=== PATIENT | female | born 1995 | race Hispanic/Latino ===

== ENCOUNTER 2018-08-03 15:25 | Emergency (ER) | payer MEDICAID | END 2018-08-03 16:16 | disposition home or self-care (01) | LOC: EDH 15:25 | DX: O26.891 Other specified pregnancy related conditions, first trimester (principal); H66.001 Acute suppurative otitis media without spontaneous rupture of ear drum, right ear; Z3A.01 Less than 8 weeks gestation of pregnancy ==

== ENCOUNTER 2024-11-05 09:47 | Emergency (ER) | payer MEDICAID ==
[~2024-11-05] VITALS: Ht 154.9 cm; Wt 108.9 kg
[2024-11-05 09:48] VITALS: BP 133/79; PULSE 75; RESP 16; TEMP 98
[2024-11-05] MEDS ORDERED: AMOX500C2 PO (09:52)
[2024-11-05] MEDS ORDERED: CORTSOL OTIC (09:52)
--- NOTE | 2024-11-05 09:53 | ERN ---
General Chief Complaint: Earache Stated Complaint: LEFT EAR PAIN Time Seen by MD: 09:48 Source: patient History of Present Illness Initial Comments Patient is a 29-year-old female coming in to be evaluated for left ear pain. Patient states that the ear pain began two days ago. She was states the pain just began with a sudden mild nasal congestion no fever no chills. ROS Dictation CONSTITUTIONAL: No chills, no fever, no weakness, no diaphoresis, no malaise. HEAD/FACE: No signs of trauma. EENT: No eye pain, no blurred vision, no tearing, no double vision, ear pain, no ear discharge, no nose pain, no nasal congestion, no throat pain, no throat swelling, no mouth pain. RESPIRATORY: No cough, no orthopnea, no SOB, no stridor, no wheezing. CARDIOVASCULAR: No chest pain, no edema, no palpitations, no syncope. GASTROINTESTINAL/ABDOMINAL: No abdominal pain, no constipation, no diarrhea, no nausea, no vomiting. GENITOURINARY: No abnormal discharge, no dysuria, no frequent urination, no hematuria. No complaints of pain in the genitals. MUSCULOSKELETAL: No back pain, no gout, no joint pain, no joint swelling, no muscle pain, no muscle stiffness, no neck pain. INTEGUMENTARY: No change in color, no change in hair/nails, no dryness, no lesion, no lumps, no rash. NEUROLOGICAL/PSYCH: No anxiety, not depressed, no emotional problem, no headache, no numbness, no pre-existing deficit, no history of seizures, no tremors, no weakness. HEMATOLOGIC/LYMPHATIC: Not anemic, no history of blood clots, no apparent bleeding, no bruising, glands not swollen. All Systems Negative, Except as Noted. Physical Exam Physical Exam Dictation VITAL SIGNS: Reviewed. GENERAL APPEARANCE: Alert, oriented x3, no acute distress, obese. HEAD AND FACE: Non-traumatic. EYES: PERRL, pink conjunctivas, eyelid no trauma, anterior chamber clear. EARS: Pinnas intact and no signs of trauma or erythema. Ear canals clear and no discharge. TMs erythema. NOSE: No discharge, no bleeding. OROPHARYNX: Mouth normal, teeth no caries, tongue pink. Pharynx clear, no erythema. Tonsils no exudates, no abscesses noted. Mucous membrane moist. NECK: Supple, non-tender, no thyromegaly, no masses, no JVD, no bruits. BREAST: Deferred. CHEST: No tenderness, no crepitus, no paradoxical movement, no retractions. LUNGS: Clear, well-ventilated, symmetric, no rales, no wheezing, no rhonchi, no stridor, good breath sounds bilaterally. HEART: Regular rate, regular rhythm, no murmur, no gallops. VASCULAR: No peripheral edema. ABDOMEN: Soft, positive bowel sounds, nondistended, no guarding, nontender, no rebound, no masses no hepatomegaly, no splenomegaly, no Munoz's sign, no hernias. RECTAL: Deferred. GENITAL: Deferred. NEUROLOGICAL: Normal speech, gross motor function intact, gross sensory function intact. MUSCULOSKELETAL: Neck nontender, full range of motion, back nontender, full range of motion. EXTREMITIES: Nontender, full range of motion. SKIN: Color pink, dry, no turgor, no rash, no lacerations, no abrasions, no contusions. LYMPHATICS: Deferred. MDM MDM: Differential diagnosis: Otitis media, otitis externa, Rationale: Tests considered and ordered secondary to shared decision making include: Previous outside records reviewed: Old ER visits. Patient is a 29-year-old female coming in to be evaluated for left ear pain. On physical exam there is erythema of the external canal last well with the tympanic membrane. Patient will be discharged with a diagnosis of otitis externa with a otitis media. Throughout ER visit patient has been stable. Patient will be discharged charged with oral antibiotics ED Course Orders Procedure Category Date Status Time Acetaminophen 500mg PHA 11/05/24 Verified Tab (Tylenol 500mg T 10:00 DX & DISP Disposition: Discharge Departure Impression: Primary Impression: Otitis media Additional Impression: Otitis externa Condition: Stable Scripts Neomy Sulf/Polymyx B Sulf/Hc (Cortisporin Otic Soln) 3.5 Mg/Ml-10,000 Unit/Ml-1 % Otsol 4 DROP OTIC QID, #10 ML 0 Refills Prov: PRESLEY RICO MD 11/05/24 Amoxicillin (Amoxicillin) 500 Mg Capsule 1 CAP PO TID for 10 Days, #30 CAP 0 Refills Prov: PRESLEY RICO MD 11/05/24 Additional Instructions: FOLLOW-UP WITH PRIMARY CARE PROVIDER IN 1 TO 2 DAYS. TAKE MEDICATIONS DIRECTED HERE IN THE EMERGENCY ROOM. OKAY TO CONTINUE HOME MEDICATIONS UNLESS OTHERWISE DISCUSSED DURING YOUR VISIT IN THE EMERGENCY ROOM TODAY. RETURN TO YOUR NEAREST EMERGENCY ROOM IF SYMPTOMS WORSEN OR IF THERE IS NO IMPROVEMENT. CALL 911 IF YOU NEED IMMEDIATE ASSISTANCE. TAKE TYLENOL [id number] NEEDED AND IF NO CONTRAINDICATIONS ARE PRESENT. INCREASE ORAL HYDRATION. A WOUND CULTURE OR URINE CULTURE WAS ORDERED HERE IN THE EMERGENCY ROOM DEPARTMENT PLEASE FOLLOW-UP WITH PRIMARY CARE PROVIDER AND ADVISE THEM TO GET REPEAT PORTS FROM OUR FACILITY. IF YOU HAD ANY PAULINO WRAP/SPLINTS THAT WERE APPLIED HERE, PLEASE DO NOT REMOVE THEM UNTIL YOU SEE YOUR PRIMARY CARE OR SPECIALTY. Referrals: Referrals: SELF,REFERRAL (PCP) VIOLA NO MD Time of Disposition: 09:52 PRESLEY RICO MD Nov 05, 2024 09:53
[2024-11-05] MEDS: acetaMINOPHEN 500 MG TABLET PO ONE (10:09)
== END 2024-11-05 10:11 | disposition home or self-care (01) ==
LOC: EDH 09:47
DX: H66.92 Otitis media, unspecified, left ear (principal); H60.92 Unspecified otitis externa, left ear
CPT/HCPCS: 99283